=== PATIENT | male | born 1990 | race American Indian/Alaskan Native ===

== ENCOUNTER 2021-05-22 16:17 | Emergency (ER) | payer OTHER ==
[2021-05-22 17:18] VITALS: BP 148/88
--- NOTE | 2021-05-22 17:47 | ED Physician Documentation ---
History of Present Illness - Stated complaint Stated Complaint: INGROWN TOE NAIL,INFECTION - Chief complaint Chief Complaint: Ext Problem - Additonal information Additional information: 30-year-old male presents emergency department for evaluation of left ingrown great nail. This has been a problem for many years but acutely worse over the last month. He attempted to see [facility] but they were unable to see him until June 06 thus he comes here. Review of Systems Constitutional: reports: Reviewed and negative Nose: reports: Reviewed and negative Throat: reports: Reviewed and negative Cardiac: reports: Reviewed and negative GI: reports: Reviewed and negative : reports: Reviewed and negative Skin: reports: Other (Ingrown right great nail) Musculoskeletal: reports: Reviewed and negative Neurologic: reports: Reviewed and negative PD PAST MEDICAL HISTORY - Present Medications Home Medications: Ambulatory Orders Medication Instructions Recorded Confirmed cephALEXin [Keflex] 500 mg PO Q6H #28 05/22/21 - Allergies Allergies/Adverse Reactions: Allergies Allergy/AdvReac Type Severity Reaction Status Date / Time No Known Drug Allergies Allergy Verified 05/22/21 17:07 PD ED PE EXPANDED - Extremities Extremities: Left toe(s) (Severely ingrown left great nail. Nail is trimmed to about the mid nailbed with some splitting and cracking of the nail. Mild surrounding erythema. Moderate serous drainage.) Results - Vitals Vitals: Vital Signs - 24 hr 05/22/21 05/22/21 17:04 17:13 Temperature 36.4 C L 36.7 C Heart Rate 78 80 Respiratory 14 18 Rate Blood Pressure 156/92 H 148/88 H O2 Saturation 96 98 Oxygen O2 Source Room air PD MEDICAL DECISION MAKING - ED course Complexity details: d/w patient ED course: 30-year-old Male presents emergency department for evaluation of a left great ingrown nail. He has a severely ingrown nail with moderate surrounding erythema. However he is trim the nail to such a sufficient amount that the mid nailbed is exposed and peeling with some serous drainage. Patient will be started on Keflex. I advised that he needs to see [facility] promptly and follow-up as he needs prompt referral to a life skills instructor. Departure - Departure Disposition: Home, Self Care Clinical Impression: Ingrown nail of great toe of left foot, Cellulitis of toe of left foot Condition: Stable Record reviewed to determine appropriate education?: Yes Prescriptions: cephALEXin [Keflex] 500 mg PO Q6H #28 Comments: Oracio please soak your foot in Epson salt for 10 minutes twice a day. You have to trim the nail to such an extent that most of your nailbed is now exposed and there is cracking of it. I am concerned that this could lead to infection. It is critical that you get referred to a life skills instructor as soon as possible. [facility] should make this referral for you tomorrow. Fill the prescription for the antibiotics. Recommend Tylenol or ibuprofen for discomfort. You will find greater relief of pain by wearing open toed or wide shoes.
== END 2021-05-22 17:59 | disposition home or self-care (01) ==
LOC: ED 16:17
DX: L60.0 Ingrowing nail (principal); L03.032 Cellulitis of left toe
CPT/HCPCS: 99281; 99282